=== PATIENT | male | born 1975 | race African-American/Black ===

== ENCOUNTER 2020-12-24 12:52 | Emergency (ER) | payer OTHER ==
[~2020-12-24] VITALS: Ht 175.3 cm; Wt 77.3 kg
[2020-12-24] MEDS ORDERED: ANTIVERT 25MG25 MG PO (13:52)
[2020-12-24] MEDS ORDERED: CARAFATE 1GM1 G PO (13:54)
[2020-12-24 14:02] VITALS: BP 119/75; PULSE 89; TEMP 97.8
== END 2020-12-24 14:04 | disposition home or self-care (01) ==
LOC: COL.ER 12:52
DX: H81.10 Benign paroxysmal vertigo, unspecified ear (principal); K21.9 Gastro-esophageal reflux disease without esophagitis